=== PATIENT | female | born 1980 | race Caucasian/White ===

== ENCOUNTER 2017-10-30 06:52 | Emergency (ER) | payer BC, OTHER ==
[2017-10-30 07:27] VITALS: BP 132/78; PULSE 87; TEMP 98; BMI 29.0
--- NOTE | 2017-10-30 07:58 | PDOC ---
History of Present Illness - General Chief Complaint: Revisit, Lab Variance Stated Complaint: PROBLEM Time Seen by Provider: 10/30/17 07:34 History Source: Patient Exam Limitations: No Limitations - History of Present Illness Initial Comments: 37 YOF who is (states recent miscarriage diagnosed at [facility]) who p/w dark brown vaginal spotting ongoing for the past couple of weeks, LLQ pain, and lab variance. [facility] informed her at a f/u appointment after being dx with miscarriage that her hCG level was not dropping at the rate they expected, and asked her to come in for repeat hCG and US. The patient's LMP that was normal was 09/07/17 (so she would be 7 wks 4 days by LMP), and she had spotting start about 2-3 weeks ago. She did not know she was until going to for an appointment to check test, at which time her hCG was positive but they were not able to identify an IUP on US. She denies any fever, chills, nausea, vomiting, diarrhea, constipation, chest pain, SOB, DEJESUS, lightheadedness, LOC, rash, burning/strange colors/strange smells on urination ( though the LLQ pain increases a bit with urination), or other symptoms. Her only vaginal discharge has been dark brown/blood spotting, she did pass larger dark red clots in the past couple of weeks, and she denies any h/o STDs. She actually was tested negative for STDs recently at . Past History - Past Medical History Allergies/Adverse Reactions: Allergies Allergy/AdvReac Type Severity Reaction Status Date / Time No Known Allergies Allergy Verified 10/30/17 07:25 Home Medications: Ambulatory Orders NK [No Known Home Medication] 10/30/17 COPD: No - Immunization History Immunization Up to Date: Yes - Suicide/Smoking/Psychosocial Hx Smoking History: Never smoked Review of Systems - Review of Systems Able to Perform ROS?: Yes Constitutional: No: Chills, Fever, Unexplained wgt Loss HEENTM: No: Nose Congestion, Throat Pain Respiratory: No: Cough, Shortness of Breath Cardiac (ROS): No: Chest Pain, Palpitations ABD/GI: Yes: Other (abdominal pain). No: Constipated, Diarrhea, Nausea, Vomiting : No: Burning, Dysuria Musculoskeletal: No: Back Pain, Neck Pain Integumentary: No: Bruising, Rash Neurological: No: Headache, Numbness, Tingling, Weakness, Dizziness Endocrine: No: Unexplained Weight Gain, Unexplained Weight Loss *Physical Exam - Vital Signs Last Vital Signs Temp Pulse Resp BP Pulse Ox 98.0 F 87 18 132/78 98 10/30/17 07:00 10/30/17 07:00 10/30/17 07:00 10/30/17 07:00 10/30/17 07:00 - Physical Exam General Appearance: Yes: Nourished, Appropriately Dressed, Other (nontoxic and well appearing adult female who appears comfortable, answering appropriately). No: Apparent Distress HEENT: positive: EOMI, NICOLETTE, Normal ENT Inspection, Normal Voice, Hearing Grossly Normal. negative: Scleral Icterus (R), Scleral Icterus (L), Nasal Congestion Neck: positive: Trachea midline, Supple. negative: Tender, Rigid Respiratory/Chest: positive: Lungs Clear, Normal Breath Sounds. negative: Respiratory Distress, Crackles, Rhonchi, Stridor, Wheezing Cardiovascular: positive: Regular Rhythm, Regular Rate, S1, S2. negative: Edema , JVD, Murmur Female Pelvic Exam: positive: normal external exam, cervical os closed, discharge (small amount of dark brown discharge/spotting), other (minimal left adnexal). negative: CMT Gastrointestinal/Abdominal: positive: Normal Bowel Sounds, Soft, Tenderness ( minimal LLQ). negative: Tender, Organomegaly, Pulsatile Mass, Guarding Musculoskeletal: positive: Normal Inspection. negative: Decreased Range of Motion, Vertebral Tenderness Extremity: positive: Normal Capillary Refill, Normal Inspection, Normal Range of Motion. negative: Tender, Cyanosis, Swelling, Calf Tenderness Integumentary: positive: Normal Color, Dry, Warm. negative: Erythema, Rash, Bruising Neurologic: positive: maintenance planning clerk II-XII NML intact (grossly), Fully Oriented, Alert, Normal Mood/Affect, Normal Response, Motor Strength 5/5 ED Treatment Course - LABORATORY CBC & Chemistry Diagram: 10/30/17 08:20 10/30/17 08:20 Medical Decision Making - Medical Decision Making 10/30/17 08:05 First trimester female p/w vaginal bleeding and lower abdominal pain at <20 wks gestation. Initial Vital Signs Temp Pulse Resp BP Pulse Ox 98.0 F 87 18 132/78 98 10/30/17 07:00 10/30/17 07:00 10/30/17 07:00 10/30/17 07:00 10/30/17 07:00 Exam: Nontoxic, well appearing, not pale, normal heart and lungs, no edema, minimal LLQ ttp, minimal adnexal tenderness, small brown discharge in vaginal vault DDX IBNLT: threatened/inevitable/incomplete/complete/septic , retained POC, ectopic, molar , PID, TOA/cervicitis, endometritis, ruptured ovarian cyst, ovarian torsion, malignancy, menorrhagia, endometriosis, rectal bleed, hematuria, constipation, fibroids, colitis, etc. W/U ordered: CBCD CMP T&S UA UCx hCG Quant TVUS. TX ordered: Tylenol Laboratory Tests 10/30/17 10/30/17 10/30/17 08:20 08:20 08:20 WBC 8.7 RBC 4.17 Hgb 12.9 Hct 38.4 MCV 92.1 MCH 30.9 MCHC 33.6 RDW 12.9 Plt Count 213 MPV 7.9 Absolute Neuts (auto) 5.9 Neutrophils % 67.9 Lymphocytes % 23.4 Monocytes % 6.4 Eosinophils % 1.8 Basophils % 0.5 Nucleated RBC % 0 Sodium 139 Potassium 4.8 Chloride 107 Carbon Dioxide 26 Anion Gap 6 L BUN 13 Creatinine 0.9 Creat Clearance w eGFR > 60 Random Glucose 84 Calcium 8.4 L Total Bilirubin 0.5 AST 26 ALT 22 Alkaline Phosphatase 61 Total Protein 7.1 Albumin 3.9 Beta HCG, Quant 888.1 Blood Type A POSITIVE Antibody Screen Negative Blood type is: A Positive US: 5x2.7 cm left adnexal mass c/w ectopic. Reassessment: Patient feels improved after Tylenol, repeat exam benign except continued mild LLQ ttp. Dr. Aguiar comes to ED for consult. Patient is appropriate for medical management at this time with MTX. Ordered is MTX IM 50 mg/m2. Patient is instructed to take folic acid supplement at home. She will come back to the ED on morning at 6 am for recheck CBCD CMP hCG Quant and TVUS. Vital Signs Temperature 98.0 F 10/30/17 07:00 Pulse Rate 87 10/30/17 07:00 Respiratory Rate 18 10/30/17 07:00 Blood Pressure 132/78 10/30/17 07:00 O2 Sat by Pulse Oximetry (%) 98 10/30/17 07:00 The Pt does not require Rhogam. Workup is not concerning for emergency-level pathology at this time. She does have apparent left ectopic but can be medically managed. The Pt is appropriate for discharge home w/ close outpatient f/u and return to ED on . The Pt is comfortable with this plan and will follow up with their PCP in 1-3 days. She will take primarily Tylenol for pain, also Motrin. Specific return precautions are discussed and they will come back to the ER if necessary. *DC/Admit/Observation/Transfer Diagnosis at time of Disposition: Ectopic Qualifiers: Location of ectopic : unspecified location Intrauterine status: without intrauterine Qualified Code(s): O00.90 - Unspecified ectopic without intrauterine - Discharge Dispostion Disposition: HOME Condition at time of disposition: Stable Decision to Admit order: No - Referrals - Patient Instructions Printed Discharge Instructions: DI for Ectopic Additional Instructions: You were seen in the ER for an apparent ectopic . We did an exam, laboratory work on your blood and urine, and an ultrasound, and our DISABILITY ATTORNEY doctor (Dr. Aguiar) saw you. We ordered a medication injection of methotrexate to try medical management to resolve the ectopic . Please take a folic acid supplement, which you can purchase over the counter. After our assessment, we do not think you are having a medical emergency at this time , and you are safe to go home. Please take Tylenol and Motrin for any mild- moderate pain. Follow up with your regular PCP doctor in the next 1-3 days. Come back to the ED on at 6 am so that we can re-check your blood and hormone levels, and re-check an ultrasound. Please also come back to the ER at any time (24 hours a day) for any new or worsening symptoms, like worsening pelvic pain, discharge, high fever, headache, seizure, fainting, anemia, large amount of blood loss, or other symptoms. If you are having severe or life threatening symptoms, or symptoms that make it unsafe to drive or have someone drive you, please call 911. - Post Discharge Activity
[2017-10-30] MEDS ORDERED: ACETAMINOPHEN 500 MG TABLET (FP) PO ONE (07:59)
--- NOTE | 2017-10-30 08:04 | PDOC ---
Attending Attestation - HPI HPI: 10/30/17 08:20 The patient is a 37 year old female, (reports she had a recently diagnosed miscarriage) with no significant PMH who presents to the emergency department complaining of dark brown vaginal spotting that began approximately 2-3 weeks with associated left lower quadrant pain. The patient reports she went for a follow-up at [facility] for a miscarriage and the hCG level was not going dropping as expected. Patient was told to come to the ER for a transvaginal ultrasound and a repeat hCG level. The patient denies chest pain, shortness of breath, headache and dizziness. Denies chills, nausea, vomit, diarrhea and constipation. Denies dysuria, frequency, urgency and hematuria. Allergies: NKA Past surgical history: None reported. Social history: No reported alcohol, drug, or cigarette use. - Physicial Exam PE: 10/30/17 10:19 Constitutional: Awake, alert, oriented. No acute distress. Head: Normocephalic. Atraumatic Cardiovascular: Regular rate. Regular rhythm. S1, S2 regular. Distal pulses are 2+ and symmetric. Pulmonary/Chest: No evidence of respiratory distress. Clear to auscultation bilaterally No wheezing, rales or rhonchi. Abdominal: (+) Mild left lower quadrant tenderness. Soft and non-distended. No rebound, guarding or rigidity. No organomegaly. No palpable masses. Good bowel sounds. Musculoskeletal: No edema. No cyanosis. No clubbing. Full range of motion in all extremities. Nocalf tenderness. Radial/pedal pulses are intact and 2+ bilaterally Skin: Skin is warm and dry. No petechiae. No purpura. Psychiatric: Good eye contact. Normal interaction, affect and behavior. <Ewelina Anderson - Last Filed: 10/30/17 10:27> - Resident Resident Name: Nida Gomez - ED Attending Attestation I have performed the following: I have examined & evaluated the patient, The case was reviewed & discussed with the resident, I agree w/resident's findings & plan, Exceptions are as noted - Medical Decision Making 10/30/17 15:05 The patient is a 37 year old female, (reports she had a recently diagnosed miscarriage) with no significant PMH who presents to the emergency department complaining of dark brown vaginal spotting that began approximately 2-3 weeks with associated left lower quadrant pain. The patient reports she went for a follow-up at [facility] for a miscarriage and the hCG level was not going dropping as expected. Patient was told to come to the ER for a transvaginal ultrasound and a repeat hCG level. Ultrasound demonstrates likely ectopic . Patient seen and evaluated by Dr. Salazar UPS DRIVER. Patient started on methotrexate per UPS DRIVER orders. Per OB/ PERSONNEL SECURITY ASSISTANT instructions patient will follow up on for repeat labs ultrasounds. Very strict ectopic return instructions discussed at length with patient. Findings, the need for follow-up and strict return instructions discussed. <Carmelo Wright - Last Filed: 10/30/17 15:06>
[2017-10-30] MEDS ORDERED: ACETAMINOPHEN 325 MG TABLET (FP) ONE (08:16)
[2017-10-30 08:33] LABS: BASO % 0.5 % (0-2.0); EOS % 1.8 % (0-4.5); HEMATOCRIT 38.4 % (32.4-45.2); HEMOGLOBIN 12.9 GM/dL (10.7-15.3); LYMPH % 23.4 % (8-40); MCH 30.9 pg (25.7-33.7); MCHC 33.6 g/dl (32.0-36.0); MEAN CELL VOLUME 92.1 fl (80-96); MEAN PLT VOLUME 7.9 fl (7.5-11.1); MONO % 6.4 % (3.8-10.2); NEUT % 67.9 % (42.8-82.8); PLATELET COUNT 213 K/MM3 (134-434); RBC 4.17 M/mm3 (3.60-5.2); RDW 12.9 % (11.6-15.6); WHITE BLOOD COUNT 8.7 K/mm3 (4.0-10.0)
[2017-10-30 08:58] LABS: ALBUMIN 3.9 g/dl (3.4-5.0); ANION GAP 6 (8-16); BLOOD UREA NITROGEN 13 mg/dL (7-18); CALCIUM 8.4 mg/dL (8.5-10.1); CHLORIDE 107 mmol/L (98-107); CO2 26 mmol/L (21-32); CREATININE 0.9 mg/dL (0.55-1.02); GLUCOSE,RANDOM 84 mg/dL (74-106); SGPT/ALT 22 U/L (12-78); SODIUM 139 mmol/L (136-145)
[2017-10-30 09:00] LABS: ALK PHOS 61 U/L (45-117); BILIRUBIN,TOTAL 0.5 mg/dL (0.2-1.0); TOT PROT 7.1 g/dl (6.4-8.2)
[2017-10-30 09:17] LABS: POTASSIUM 4.8 mmol/L (3.5-5.1)
[2017-10-30 09:18] LABS: SGOT/AST 26 U/L (15-37)
[2017-10-30] MEDS ORDERED: SODIUM CHLORIDE 0.9% 500 ML INFUS.BAG IV ONE (09:57)
[2017-10-30] MEDS ORDERED: METHOTREXATE SODIUM/PF 25 MG/ML VIAL IM ONE (11:28)
[2017-10-30] MEDS ORDERED: FOLIC ACID 1 MG TABLET (FP) PO ONE (11:46)
--- NOTE | 2017-10-30 13:50 | CON.OBG ---
Consult Consult Specialty:: derrick hand Referred by:: Angela Alva MD Resident Reason for Consultation:: ectopic - History of Present Illness Chief Complaint: 37 yrs , LMP 09/07/17, 7.3 weeks gestation referred to ED , by [facility] due to abnormal rise in HCG titers without iup seen on sono. pt is asymptomatic for pain , spotting for mor josef 7 to 10 days now . Work Up in ER Quat HCG 888 miu. TVsono : ut normal, endomerium thick, no iup . Lt ovary 2.6x1.8 cm folllicular cyst , adjacent to it dense 3.6x3.2x3.1 cm mass, no free vascular flow , possible ectopic , Rt Ovary 3.6x2.2 cm History of Present Illness: pt states she had spotting , continuous , bleeding not like normal period , so she went to [facility] , she discovered she was . She had blood drawn for HCG titers on 10/22 & again on 10/26 . she was notified on 10/27 that her hcg is abnormal rise last test hcg level was 1400 , she came to ER today to be checked out she denies h/o vomiting, diarrhea , fainting spells or abdominal pain etc . Past MH Regular cycle x 28 days x -5 days bleeding ., h/o premenstural breast tenderness Conraception : condoms denies h/o std.pid pt was seen at [facility] 1 yr ago pap done there was normal . No h/o abn pap - History Source History Provided By: Patient, Medical Record Limitations to Obtaining History: No Limitations - Past Medical History INTERNATIONAL EXCHANGE COORDINATOR: No: Migraine, Seizure Cardio/Vascular: No: HTN, Murmur Pulmonary: No: Asthma, COPD Gastrointestinal: No: Gastritis Hepatobiliary: Yes: Other (declines ) Renal/: Yes: Other (seen in ER approx 6-7 years ago left Kidney stone diagnosed ) Reproductive: No: Endometriosis, Fibroids, PID ...LMP: 09/07/17 ...: Yes (7.3 weeks gestation) ...: 1 ...Para: 0 Heme/Onc: No: Anemia Infectious Disease: No: STD's Endocrine: No: Diabetes Mellitus, Hyperthyroidism, Hypothyroidism - Past Surgical History Past Surgical History: Yes: None - Alcohol/Substance Use Hx Alcohol Use: No History of Substance Use: reports: None - Smoking History Smoking history: Never smoked Home Medications - Allergies Allergies/Adverse Reactions: Allergies Allergy/AdvReac Type Severity Reaction Status Date / Time No Known Allergies Allergy Verified 10/30/17 07:25 - Home Medications Home Medications: Ambulatory Orders NK [No Known Home Medication] 10/30/17 Physical Exam-WAFER FABRICATION TECHNICIAN Vital Signs: Vital Signs Temperature 98.0 F 10/30/17 07:00 Pulse Rate 87 10/30/17 07:00 Respiratory Rate 18 10/30/17 07:00 Blood Pressure 132/78 10/30/17 07:00 O2 Sat by Pulse Oximetry (%) 98 10/30/17 07:00 Selected Entries 10/30/17 07:00 Weight 180 lb Constitutional: Yes: Well Nourished, No Distress, Obese Eyes: Yes: WNL HENT: Yes: WNL Neck: Yes: WNL Cardiovascular: Yes: WNL Respiratory: Yes: WNL Gastrointestinal: Yes: WNL, Normal Bowel Sounds, Soft, Abdomen, Obese ...Rectal Exam: Yes: Deferred Renal/: Yes: WNL. No: CVA Tenderness - Left, CVA Tenderness - Right Pelvis: Yes: WNL. No: Tenderness External Genitalia: Yes: Normal Internal Exam Deferred: Yes Vaginal Exam: Yes: Normal, Other (old blood dark, black color discharge) Cervix: Yes: Normal. No: Cerv Motion Tenderness Uterus: Yes: Normal, Freely Moveable, Anteverted, Firm. No: Tender Adnexa: Normal: Right, Tender: Left (mild ), Enlarged: Left (fullness on left side, mild tenderness ), Not Palpable: Right Breast(s): Yes: WNL. No: Mass Musculoskeletal: Yes: WNL Extremities: Yes: WNL. No: Calf Tenderness Edema: No Integumentary: Yes: WNL, Tattoos Neurological: Yes: WNL, Alert, Oriented ...Motor Strength: WNL Psychiatric: Yes: WNL, Alert Labs: CBC, BMP 10/30/17 08:20 10/30/17 08:20 Laboratory Tests 10/30/17 08:20 AST 26 ALT 22 Beta HCG, Quant 888.1 Laboratory Tests 10/30/17 09:49 Blood Type A POSITIVE Antibody Screen Negative Problem List - Problems (1) Ectopic , tubal Code(s): O00.109 - UNSPECIFIED TUBAL WITHOUT INTRAUTERINE Qualifiers: Intrauterine status: without intrauterine Laterality: left Qualified Code(s): O00.102 - Left tubal without intrauterine Assessment/Plan 37 yrs , 7.1 gestation hcg titers , decrease from 1400 to 888 , sono no iup , lt adnexal 3.6x3.2 cm mass suggestive of ectopic I discussed possiblity of medical management with methtrxate r/b/a told , need follow with Hcg & possible rupture can occur versus , surgical management , pelviscopic possible left salpingectomy, not ltd to complications of surgery, injury bladder , bowel hemoorhage , infection benefit of no need prolong follow up, possiblity of tube removal . patient decided to go for medical management Plan Methotrexate 50 mg/sq mm , discuss with phamacist calculated dose came to 95.5 mg IM one dose follow up in one week on patient is alerted with symptoms of rupture ectopic, pain ,bleeding , fainting spells etc, she will rt ER prn ,
== END 2017-10-30 12:20 | disposition home or self-care (01) ==
LOC: JER 06:52
PROC: 3E023GC Introduction of Other Therapeutic Substance into Muscle, Percutaneous Approach (ICD-10-PCS; principal; 2017-10-30)
DX: O26.891 Other specified pregnancy related conditions, first trimester (principal); O00.90 Unspecified ectopic pregnancy without intrauterine pregnancy; Z3A.01 Less than 8 weeks gestation of pregnancy
CPT/HCPCS: 36415; 76817-TC; 80053; 84702; 85025; 86850; 86900; 86901; 99282-25; J9260

== ENCOUNTER 2017-11-04 06:13 | Emergency (ER) | payer OTHER ==
[2017-11-04 06:27] VITALS: BMI 29.8
--- NOTE | 2017-11-04 06:27 | PDOC ---
Attending Attestation - Resident Resident Name: Nida Gomez - ED Attending Attestation I have performed the following: I have examined & evaluated the patient, The case was reviewed & discussed with the resident, I agree w/resident's findings & plan, Exceptions are as noted <Zane Gannon - Last Filed: 11/04/17 06:27> - HPI HPI: 11/04/17 06:30 The patient is a 37 year old female with a past medical history of ( reports she had a recently diagnosed miscarriage) with no significant PMH who revisits to the emergency department for variant labs. The [facility] that her [facility]CG was not decreasing enough. The patient reports for repeat lab work. - Physicial Exam PE: 11/04/17 06:30 GENERAL: Well-appearing, well-nourished. No apparent distress. HEENT: Normocephalic, atraumatic. PERRL, EOM intact. CARDIOVASCULAR: Normal S1, S2. Regular rate and rhythm. PULMONARY: Clear to auscultation bilaterally. ABDOMEN: Soft, non-distended, non-tender. EXTREMITIES: Normal ROM in all four extremities. No gross deformities. SKIN: Warm, dry. No rash NEUROLOGICAL: No focal neurological deficits. - Medical Decision Making 11/04/17 06:30 Documentation prepared by Flip Martinez, acting as electromedical service engineer for Zane Gannon DO. <Flip Martinez - Last Filed: 11/04/17 06:31>
--- NOTE | 2017-11-04 06:36 | PDOC ---
History of Present Illness - General Chief Complaint: Revisit, Lab Variance Stated Complaint: ECTOPIC /TREATMENT Time Seen by Provider: 11/04/17 06:26 History Source: Patient Exam Limitations: No Limitations - History of Present Illness Initial Comments: 37 YOF with recent miscarriage of left ectopic at approximately 7 wks 4 days, had methotrexate administered here in the ED after ectopic detected on TVUS and INSIDE PLANT SUPERVISOR Dr. Aguiar consulted. She returns as directed for repeat quantitative hCG, CBCD, CMP, and TVUS to reassess progress of medical management for left ectopic. Dr. Aguiar asked to be called when TVUS and lab results completed this morning. The patient herself notes that the cramps are slowly improving, she still has bleeding but this remains mild. She has no complaints. 37 YOF who is (states recent miscarriage diagnosed at [facility]) who p/w dark brown vaginal spotting ongoing for the past couple of weeks, LLQ pain, and lab variance. [facility] informed her at a f/u appointment after being dx with miscarriage that her hCG level was not dropping at the rate they expected, and asked her to come in for repeat hCG and US. The patient's LMP that was normal was 09/07/17 (so she would be 7 wks 4 days by LMP), and she had spotting start about 2-3 weeks ago. She did not know she was until going to for an appointment to check test, at which time her hCG was positive but they were not able to identify an IUP on US. She denies any fever, chills, nausea, vomiting, diarrhea, constipation, chest pain, SOB, DEJESUS, lightheadedness, LOC, rash, burning/strange colors/strange smells on urination ( though the LLQ pain increases a bit with urination), or other symptoms. Her only vaginal discharge has been dark brown/blood spotting, she did pass larger dark red clots in the past couple of weeks, and she denies any h/o STDs. She actually was tested negative for STDs recently at . Past History - Past Medical History Allergies/Adverse Reactions: Allergies Allergy/AdvReac Type Severity Reaction Status Date / Time No Known Allergies Allergy Verified 11/04/17 06:25 Home Medications: Ambulatory Orders NK [No Known Home Medication] 10/30/17 COPD: No - Immunization History Immunization Up to Date: Yes - Suicide/Smoking/Psychosocial Hx Smoking History: Never smoked Have you smoked in the past 12 months: No Information on smoking cessation initiated: No Hx Alcohol Use: No Drug/Substance Use Hx: No Substance Use Type: None *Physical Exam - Vital Signs Last Vital Signs Temp Pulse Resp BP Pulse Ox 98.6 F 77 20 102/68 99 11/04/17 06:25 11/04/17 06:25 11/04/17 06:25 11/04/17 06:25 11/04/17 06:25 - Physical Exam General Appearance: Yes: Nourished, Appropriately Dressed, Other (well appearing , nontoxic, not pale, answering questions appropriately). No: Apparent Distress HEENT: positive: EOMI, Normal Voice, Hearing Grossly Normal. negative: Scleral Icterus (R), Scleral Icterus (L), Nasal Congestion Neck: positive: Trachea midline, Supple. negative: Tender, Rigid Respiratory/Chest: positive: Lungs Clear, Normal Breath Sounds. negative: Respiratory Distress, Crackles, Rhonchi, Stridor, Wheezing Cardiovascular: positive: Regular Rhythm, Regular Rate. negative: Murmur Gastrointestinal/Abdominal: positive: Normal Bowel Sounds, Soft. negative: Tender, Organomegaly, Pulsatile Mass, Guarding Musculoskeletal: positive: Normal Inspection. negative: Decreased Range of Motion, Vertebral Tenderness Extremity: positive: Normal Capillary Refill, Normal Inspection, Normal Range of Motion. negative: Tender, Cyanosis Integumentary: positive: Normal Color, Dry, Warm. negative: Erythema, Rash, Bruising Neurologic: positive: power supply engineer II-XII NML intact, Fully Oriented, Alert, Normal Mood/ Affect, Normal Response, Motor Strength 5/5 ED Treatment Course - RADIOLOGY Radiology Studies Ordered: Category Date Time Status TRANSVAGINAL ULTRASOUND US [US] Stat Ultrasound 11/04/17 06:30 Ordered Medical Decision Making - Medical Decision Making 11/04/17 07:05 Patient's care endorsed to Drs. Hammer and Shawna at the end of my shift. Pending labs, TVUS, consult with Dr. Aguiar. *DC/Admit/Observation/Transfer Diagnosis at time of Disposition: Ectopic Qualifiers: Location of ectopic : unspecified location Intrauterine status: unspecified Qualified Code(s): O00.90 - Unspecified ectopic without intrauterine - Discharge Dispostion Condition at time of disposition: Stable Decision to Admit order: No - Referrals - Patient Instructions Additional Instructions: You were seen in the ER for a follow up on your ectopic which we managed with an injection of methotrexate. We did an exam, repeated the laboratory work on your blood, and repeated the ultrasound. We called our OB/ WINDER HAND doctor (Dr. Aguiar) who saw you last time. Please continue to take a folic acid supplement. Please take Tylenol and Motrin for any mild-moderate pain. Follow up with your regular PCP doctor in the next 1-3 days. Please also come back to the ER at any time (24 hours a day) for any new or worsening symptoms, like worsening pelvic pain, discharge, high fever, headache, seizure, fainting, anemia, large amount of blood loss, or other symptoms. If you are having severe or life threatening symptoms, or symptoms that make it unsafe to drive or have someone drive you, please call 911. - Post Discharge Activity
[2017-11-04 06:58] LABS: BASO % 0.4 % (0-2.0); EOS % 2.8 % (0-4.5); HEMATOCRIT 36.8 % (32.4-45.2); HEMOGLOBIN 12.3 GM/dL (10.7-15.3); LYMPH % 32.5 % (8-40); MCH 30.9 pg (25.7-33.7); MCHC 33.4 g/dl (32.0-36.0); MEAN CELL VOLUME 92.5 fl (80-96); MEAN PLT VOLUME 8.1 fl (7.5-11.1); MONO % 6.3 % (3.8-10.2); PLATELET COUNT 211 K/MM3 (134-434); RBC 3.98 M/mm3 (3.60-5.2); RDW 13.1 % (11.6-15.6); WHITE BLOOD COUNT 6.6 K/mm3 (4.0-10.0)
--- NOTE | 2017-11-04 07:21 | PDOC ---
*Physical Exam - Vital Signs Last Vital Signs Temp Pulse Resp BP Pulse Ox 98.6 F 77 20 102/68 99 11/04/17 06:25 11/04/17 06:25 11/04/17 06:25 11/04/17 06:25 11/04/17 06:25 ED Treatment Course - LABORATORY CBC & Chemistry Diagram: 11/04/17 06:34 11/04/17 06:34 - ADDITIONAL ORDERS Additional order review: 11/04/17 06:34 RBC 3.98 MCV 92.5 MCHC 33.4 RDW 13.1 MPV 8.1 Neutrophils % 58.0 Lymphocytes % 32.5 D Monocytes % 6.3 Eosinophils % 2.8 Basophils % 0.4 Medical Decision Making - Medical Decision Making 11/04/17 07:[address] Miller. 11/04/17 09:49 Ms. Yo is a 37 yo female w/ pmh of left ectopic at approximately 7 wks and 4 days w/ methotrexate given in ED; representing per plan for repeat beta and TVUS. Previous beta hcg was 888.1; current is 411.8. TVUS again revealed round left adnexal masslike density suspicious for ectopic . Discussed with Dr. Aguiar who requested repeat dose of methotrexate and will follow-up in clinic on Wednesday. Discharging to home in conjunction with this plan. *DC/Admit/Observation/Transfer Diagnosis at time of Disposition: Ectopic Qualifiers: Location of ectopic : unspecified location Intrauterine status: unspecified Qualified Code(s): O00.90 - Unspecified ectopic without intrauterine - Discharge Dispostion Disposition: HOME Condition at time of disposition: Stable - Referrals Referrals: Miriam Aguiar MD [Staff Physician] - - Patient Instructions Additional Instructions: You were seen in the ER for a follow up on your ectopic which we managed with an injection of methotrexate. We did an exam, repeated the laboratory work on your blood, and repeated the ultrasound. We called our [facility] [employer] doctor (Dr. Aguiar) who saw you last time who will see you in clinic on Wednesday. Please continue to take a folic acid supplement. Please take Tylenol and Motrin for any mild-moderate pain. Please also come back to the ER at any time (24 hours a day) for any new or worsening symptoms, like worsening pelvic pain, discharge, high fever, headache, seizure, fainting, anemia, large amount of blood loss, or other symptoms. If you are having severe or life threatening symptoms, or symptoms that make it unsafe to drive or have someone drive you, please call 911. - Post Discharge Activity
[2017-11-04 07:23] LABS: ALBUMIN 3.5 g/dl (3.4-5.0); ANION GAP 7 (8-16); BILIRUBIN,TOTAL 0.2 mg/dL (0.2-1.0); BLOOD UREA NITROGEN 17 mg/dL (7-18); CALCIUM 8.5 mg/dL (8.5-10.1); CHLORIDE 110 mmol/L (98-107); CO2 24 mmol/L (21-32); CREATININE 0.8 mg/dL (0.55-1.02); GLUCOSE,RANDOM 90 mg/dL (74-106); POTASSIUM 4.5 mmol/L (3.5-5.1); SGOT/AST 40 U/L (15-37); SGPT/ALT 61 U/L (12-78); SODIUM 141 mmol/L (136-145); TOT PROT 6.7 g/dl (6.4-8.2)
[2017-11-04 07:26] LABS: ALK PHOS 57 U/L (45-117)
[2017-11-04] MEDS ORDERED: METHOTREXATE SODIUM/PF 25 MG/ML VIAL IM ONE ×2 (10:54→11:30)
[2017-11-04 11:20] VITALS: BP 125/67; PULSE 66; TEMP 98.2
== END 2017-11-04 12:22 | disposition home or self-care (01) ==
LOC: JER 06:13
PROC: 3E023GC Introduction of Other Therapeutic Substance into Muscle, Percutaneous Approach (ICD-10-PCS; principal; 2017-11-04)
DX: O00.90 Unspecified ectopic pregnancy without intrauterine pregnancy (principal); Z3A.01 Less than 8 weeks gestation of pregnancy
CPT/HCPCS: 36415; 76830-TC; 80053; 84702; 85025; 99281-25; J9260